=== PATIENT | male | born 1965 | race African-American/Black ===

== ENCOUNTER 2018-01-17 11:25 | Emergency (ER) | payer BC ==
[~2018-01-17] VITALS: Ht 172.7 cm; Wt 88.0 kg
[~2018-01-17 11:25] MED LIST: LISI-206; METF-370; SIMV10TA84; TRIA25CA
[2018-01-17] MEDS ORDERED: KETOROLAC TROMETH 60MG/2ML VIAL IM ONE (12:30)
== END 2018-01-17 12:57 | disposition home or self-care (01) ==
LOC: ER 11:25 → MERGE 11:25 → ER 12:57
DX: M75.91 Shoulder lesion, unspecified, right shoulder (principal)
CPT/HCPCS: 73030; 96372; 99284; J1885